=== PATIENT | female | born 1995 | race Caucasian/White ===

== ENCOUNTER → 2017-01-06 | Outpatient (CLI) | payer OTHER ==
[~2017-01-06] MED LIST: HYDR-5688 PO; NORE-41 PO
--- NOTE | 2017-01-06 10:49 | DIAGNOSTIC IMAGING REPORT ---
LEFT FOOT MIN 3 VIEWS CLINICAL HISTORY: 21 years-old Female presenting with LEFT FOOT PAIN. TECHNIQUE: Frontal, oblique, and lateral views of the left foot were obtained. COMPARISON: None. FINDINGS: Nondisplaced intra-articular fracture of the base of the fifth metatarsal which is obliquely oriented and courses towards the articulation of the bases of the fourth and fifth metatarsals and associated articular surface with the cuboid. No other fracture identified. No malalignment. No degenerative change. Mild soft tissue swelling over the lateral foot. IMPRESSION: Nondisplaced intra-articular fracture at the base of the fifth metatarsal (pseudo-Daniels fracture). Electronically signed by: Americo Kemp M.D. 01/06/2017 10:48 AM Dictated Date/Time: 01/06/2017 10:46 AM
== END | disposition home or self-care (01) ==
LOC: C.RDSM 11:34
PROVIDERS: ATTEND Family Medicine
DX: M79.671 Pain in right foot (principal); S92.355A Nondisplaced fracture of fifth metatarsal bone, left foot, initial encounter for closed fracture; X58.XXXA Exposure to other specified factors, initial encounter

== ENCOUNTER → 2017-01-08 | Day surgery (SDC) | payer OTHER ==
[2017-01-07 08:32] VITALS: Ht 170.2 cm; Wt 63.6 kg
--- NOTE | 2017-01-07 14:06 | HISTORY & PHYSICAL EXAMINATION ---
DATE OF ADMISSION: 01/08/2017 CHIEF COMPLAINT: Left foot pain x1 day. 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 She landed on her foot awkwardly. She had immediate pain. She was able to walk off the field on her own but it was very painful. She did have some immediate swelling and pain in the outer aspect of her left foot. She was brought to our office with her market development trainer. She had x-rays of her left foot which revealed an acute fracture through the left fifth metatarsal, representing a Daniels fracture. She was referred to Dr. Hicks for orthopedic evaluation. She denies any prior history of injury or pain in her left foot. She states that she has been having some pain in the right foot for the last 3 weeks, aggravated with athletic activities. Due to her fracture, surgical intervention was recommended. Risks and complications were discussed. All questions were answered. She has agreed to proceed with surgery. She is scheduled for an ORIF of her left fifth metatarsal fracture with Dr. Hicks on 01/08/2017. PAST MEDICAL HISTORY: None. CURRENT MEDICATION: Loestrin Fe daily BCP ALLERGIES: No known drug allergies. PAST SURGICAL HISTORY: She had a previous ORIF of her left distal radius in the past. SOCIAL HISTORY: Denies any tobacco, alcohol or drug use. 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 FAMILY HISTORY: Noncontributory. REVIEW OF SYSTEMS: She denies any headaches, migraines, seizures, syncopal episodes, chest pain, shortness of breath, or heart palpitations. She denies any blurry vision or hearing loss. Denies any bleeding or clotting disorders. No history of DVT, pulmonary embolus, or phlebitis. Denies any fevers, chills, recent weight loss or gain unexpectedly. Denies any nausea, vomiting, diarrhea, constipation or urinary symptoms. She states that she did have little nausea, vomiting after the surgery of her left radius and from pain medication. PHYSICAL EXAMINATION: GENERAL: She is alert and oriented x3. She is in no acute distress. Well-dressed, well-nourished female, normal mood and affect. Height is 5 feet 7 inches. Weight is 140 pounds. HEENT: Head is atraumatic, normocephalic. EYES: Extraocular movements intact. Pupils are equal, round and reactive to light. Sclera is normal. EARS: Hearing is grossly normal. TMs are clear with normal light reflex. NOSE: Nares are patent bilaterally. THROAT: Oropharynx is clear. Mucous membranes moist. Good dentition. Uvula midline. NECK: Supple, no lymphadenopathy, nontender to palpation. CHEST: Nontender to palpation. LUNGS: Clear to auscultation. No accessory muscle use. No adventitious sounds appreciated. HEART: Regular rate and rhythm, normal S1, S2, no murmurs appreciated. ABDOMEN: Soft, nontender, nondistended. Bowel sounds heard in all 4 quadrants. EXTREMITIES: Exam of her left foot reveals some mild swelling. 1+ dorsalis pedis and posterior tibial pulses. Point tenderness to palpation of the base of the left fifth metatarsal. Ankle is nontender with full range of motion of her ankle. She has some discomfort with inversion and eversion due to her left foot fracture. RADIOLOGY IMAGES: Three views of her left foot were taken and show a transverse nondisplaced fracture at the metaphysial-diaphysial junction of her left fifth metatarsal, suggestive of Daniels fracture. X-rays of her right foot were also taken and revealed no evidence of bony abnormality, fracture or dislocation. IMPRESSION: Left fifth metatarsal fracture -- Daniels fracture. PLAN: The patient is scheduled for an ORIF of her left fifth metatarsal fracture with Dr. Hicks on 01/08/2017 at [facility]. Risks and complications were discussed and include but are not limited to infection, pain, bleeding, scarring, nerve and blood vessel damage, wound problems, weakness, stiffness, incomplete relief of symptoms, heart attack, hardware failure, fracture, nonunion, malunion, blood clots, embolisms, stroke and . Informed consent will be obtained by Dr. Hicks at the day of surgery. She does not need any preoperative lab work, EKG or medical clearance prior to surgery. She will follow up 4-5 days postoperatively with her market development trainer for a dressing change. She will also follow up with Dr. Hicks about 10-14 days postoperatively for suture removal. She will continue nonweightbearing. She will bring her crutches and boot to surgery with her tomorrow. She was given a prescription for Philpot for postoperative pain control. She was instructed to be n.p.o. after midnight. She was also instructed on CHG cloth usage. All questions were answered. She knows to call with any further problems, questions, or concerns. SHLOMO
[~2017-01-08] VITALS: Ht 170.2 cm; Wt 63.6 kg
[~2017-01-08] MED LIST changes: +CEFAZOLIN 1000MG/55 ML D5W IV SCH; +CEFAZOLIN SOD 1 GM VIAL ONE; +FENTANYL CITRATE INJ 50 MCG/1 ML 2 ML VIAL ONE; +LACTATED RINGER'S 1000ML 1,000 ML IV SCH; +MIDAZOLAM HCL 1 MG/ML 2ML VIAL ONE; +MoRPHine SULFATE 2 MG/ML CARP IV PRN; +MoRPHine SULFATE 4 MG/ML 1 ML CARP\\VIAL IV PRN; +ONDANSETRON INJ 2 MG/ML 2 ML VIAL ONE; +OXYCODONE/ACETAMINOPHEN 5-325 TAB PO PRN; +PROPOFOL IV EMULSION 10 MG/ML 20 ML VIAL IV ONE; +ROCURONIUM BROMIDE 10 MG/ML 5 ML VIAL IV ONE; +ROPIVACAINE 0.5% 5 MG/ML 30 ML VIAL ONE; +SODIUM CHLORIDE 0.9% 1000ML 1,000 ML IV SCH; +SUCCINYLCHOLINE CHLORIDE 20 MG/ML 10 ML VIAL IV ONE
--- NOTE | 2017-01-08 12:10 | History & Physical Bridge Note ---
H&P Re-Evaluation Bridge Note: I have examined the patient, reviewed the History & Physical and in the interval since the performance of the History & Physical I have noted the following changes of clinical significance: No changes noted
--- NOTE | 2017-01-08 14:21 | Discharge Instructions-SurgCtr ---
Discharge Instructions Date of Service Jan 08, 2017. Visit Reason for Visit: Left Foot 5TH Metatarsal Fx Discharge Discharge Diagnosis / Problem: left foot 5th metatarsal fracture Discharge Goals Goal(s): Decrease discomfort, Improve function, Increase independence Activity Recommendations Activity Limitations: per Instructions/Follow-up section Weightbearing Status: Left non-weightbearing Anesthesia . Post Anesthesia Instructions: If you have had General Anesthesia or IV Sedation: * Do not drive today. * Resume driving when surgeon permits. * Do not make important decisions or sign legal documents today. * Call surgeon for: 1. Temperature elevations greater than 101 degrees F. 2. Uncontrollable pain. 3. Excessive bleeding. 4. Persistent nausea and vomiting. 5. Medication intolerance (nausea, vomiting or rash). * For nausea and vomiting use only clear liquids such as: tea, soda, bouillon until nausea subsides, then gradually increase diet as tolerated. * If you have any concerns or questions, call your surgeon's office. If physician is unavailable and it is an emergency, call 911 or go to the nearest emergency room. . Instructions / Follow-Up Instructions / Follow-Up DIET: * Resume previous diet. MEDICATIONS: * Please take your prescriptions as instructed at your pre-op appointment and/ or see medication discharge instructions listed above. * If concerns develop, call your physician's office at . SPECIAL CARE INSTRUCTIONS: * Ice to left ankle as needed for pain/swelling * Elevate left foot above heart to relieve pain/swelling * Keep dressing clean, dry, intact. Keep splint on at all times. Do not remove until your link trainer teacher says it's okay to go into the boot. * Your surgical extremity may be discolored due to prepping agents used on the skin. A bluish-green tint is a normal variant and should not cause alarm. Call your doctor at [phone] if: * Temperature above 101 degrees * Pain not relieved by pain medicine ordered * There is increased drainage or redness from any incision * You have any unanswered questions, problems or concerns. FOLLOW UP VISIT: * If not already scheduled, please call the office at to schedule a follow-up appointment. Diet Recommendations Home Diet: no limitations, resume previous diet Procedures Procedures Performed: Left Foot Open Reduction Internal Fixation, Fifth Metatarsal Pending Studies Studies pending at discharge: no Medical Emergencies . Who to Call and When: Medical Emergencies: If at any time you feel your situation is an emergency, please call 911 immediately. . Non-Emergent Contact Non-Emergency issues call your: Surgeon Call Non-Emergent contact if: temperature is above 101, your pain is not controlled, your pain is concerning you, wound has increased drainage, wound has increased redness, wound has increased pain . . "Provider Documentation" section prepared by Wendy Solares. . [place] Drug Monitoring Program Search Results: patient reviewed within database, no issues identified
--- NOTE | 2017-01-08 14:22 | [facility] Operative Report ---
Operative Report Operative Date Jan 08, 2017. Pre-Operative Diagnosis Left Foot Fifth Metatarsal Fracture Post-Operative Diagnosis Same Procedure(s) Performed Left Foot Open Reduction Internal Fixation, Fifth Metatarsal Surgeon Dr. 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 She sustained a Chris's fracture of her left foot fifth metatarsal several days ago. She was apprised of her treatment options including nonoperative management. She elected to proceed with operative intervention to speed her recovery back to play. Description of Procedure Informed consent was obtained. The patient identified as Colleen Stafford. She identified the left foot as the operative site. I marked with my initials. Preoperative surgical timeout was performed performed. She was taken the operating room positioned lateral decubitus with the left side up. This was done after demonstration of a peripheral nerve block and a laryngeal mask anesthetic. Bony prominences were inspected and padded the torso secured with a beanbag. An axillary roll was inserted. I confirmed that the we can obtain lateral and AP views of the leg by externally rotating the hip. Tourniquet applied to the left thigh. Preoperative dose of IV antibiotics given. Fluoroscopy guidance was utilized throughout the procedure. DVT prophylaxis will be done with early patient mobility. A routine prep and drape was performed. The tourniquet was not inflated. Starting point was identified using fluoroscopy. A three quarter of an inch incision was made just proximal to the fifth metatarsal base. Blunt dissection was performed down to subcutaneous tissues until the base the fifth metatarsals identified. A guidewire for the 4.0 cannulated screws was inserted and adjusted 2. It was inserted down the shaft of the metatarsal being a perfectly central in both the AP and lateral planes. It had the appropriate starting point high and inside. The skin was protected. I determined the length of approximate 42 mm to be appropriate. A 0.7 mm drill bit was initially utilized followed by insertion of the 4.0 tap. Her was the opportunity to insert a large os screw. I then drilled with the 3.2 mm drill bit and inserted a 4.5 mm cannulated screw. I do not think 55 screw would have fit. An excellent bite was obtained. Reaming was performed just beyond the fracture site the alignment was anatomic. The fracture was well reduced area screw was completely seated. Multiple fluoroscopic images and delivery representative images were obtained. The wound was irrigated with sterile saline and closed with 4-0 nylon for the dermal layer care was taken to avoid any nerve incarceration. The sural nerve was not encountered during the case. I did identify the peroneus brevis tendon. This was intact at the conclusion of the operation. The skin was then closed with 4-0 nylon followed by soft sterile dressing and a well-padded posterior splint with ankle in neutral position. She was then awakened from anesthesia without difficulty taken to recovery room in stable condition. There were no specimens or complications. Counts were correct in the case. Blood loss was minimal. At the conclusion operations both patient's mother informed her my findings in detail postoperative instructions were given. She'll be in in several days for dressing change. We'll keep her nonweightbearing and switch her into a fracture boot. She can do simple things like range of motion. I attest to the content of the Intraoperative Record and any orders documented therein. Any exceptions are noted below.
--- NOTE | 2017-01-08 14:25 | [facility] Operative Report ---
Operative Report Operative Date Jan 08, 2017. Pre-Operative Diagnosis Left Foot Fifth Metatarsal Fracture Post-Operative Diagnosis Same Procedure(s) Performed Left Foot Open Reduction Internal Fixation, Fifth Metatarsal Surgeon Dr. 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 She had immediate left foot pain. She denies any previous foot pain or injury. She was unable to weight- bear without pain. She was brought to were team doctor where x-rays were taken and she was found to have a Daniels fracture of her left fifth metatarsal. She is referred to Dr. Hicks for surgical intervention. Surgical options were discussed and she agreed to proceed with surgery. Risks and complications were discussed. Informed consent was obtained. Description of Procedure Patient was taken to the operating room and placed under general anesthesia. She is given a peripheral nerve block prior to surgery. She was given IV Ancef for surgical prophylaxis timeout was performed. She was prepped and draped in routine sterile fashion. I was present during the entire case, please see Dr. Hicks's operative report for further detail. She was awakened and transferred to the recovery room in stable condition. I attest to the content of the Intraoperative Record and any orders documented therein. Any exceptions are noted below.
[2017-01-08 14:59] VITALS: TEMP 36.5
[2017-01-08 15:38] VITALS: BP 100/61; PULSE 49; O2SAT 100
--- NOTE | 2017-01-08 15:42 | Anesthesiology Progress Note ---
Anesthesia Post Op Note Date & Time Jan 08, 2017 at 15:42 Vital Signs Pain Intensity: 0 Vital Signs Past 12 Hours Date Time Temp Pulse Resp B/P (MAP) Pulse Ox O2 Delivery O2 Flow Rate FiO2 01/08/17 15:38 49 16 100/61 (74) 100 Room Air 01/08/17 14:59 36.5 50 16 98/58 (71) 100 Room Air 01/08/17 14:52 113/58 01/08/17 14:48 42 13 01/08/17 14:48 42 13 99 01/08/17 14:47 36.3 100 Room Air 01/08/17 14:46 103/63 01/08/17 14:43 40 15 01/08/17 14:43 40 15 100 01/08/17 14:42 40 14 01/08/17 14:42 41 14 99 01/08/17 14:41 105/60 01/08/17 14:37 48 15 01/08/17 14:37 47 15 98 01/08/17 14:36 109/64 01/08/17 14:32 50 17 01/08/17 14:32 48 17 01/08/17 14:31 117/62 01/08/17 14:27 49 16 01/08/17 14:27 16 01/08/17 14:26 107/64 01/08/17 14:22 54 17 100 01/08/17 14:22 52 17 01/08/17 14:21 96/60 01/08/17 14:17 44 15 01/08/17 14:17 46 15 100 01/08/17 14:16 105/54 01/08/17 14:13 98/53 01/08/17 14:13 36.6 45 18 98/53 100 Mask 6 01/08/17 12:47 0 01/08/17 12:42 57 01/08/17 12:42 56 9 100 01/08/17 12:41 114/66 01/08/17 12:39 60 16 100 01/08/17 12:39 61 01/08/17 12:36 119/78 01/08/17 12:34 68 01/08/17 12:34 68 18 100 01/08/17 12:31 120/72 01/08/17 12:29 69 01/08/17 12:29 71 12 149/91 100 9/21/17 12:28 68 8 149/91 (110) 99 Mask 6 01/08/17 10:27 36.4 50 16 117/73 (88) 97 Room Air Notes Mental Status: alert / awake / arousable, participated in evaluation Pt Amnestic to Procedure: Yes Nausea / Vomiting: adequately controlled Pain: adequately controlled Airway Patency, RR, SpO2: stable & adequate BP & HR: stable & adequate Hydration State: stable & adequate Anesthetic Complications: no major complications apparent
== END | disposition home or self-care (01) ==
LOC: X.SURG 10:01
PROVIDERS: ATTEND Physical Medicine & Rehabilitation Sports Medicine
DX: S92.352A Displaced fracture of fifth metatarsal bone, left foot, initial encounter for closed fracture (principal); X50.0XXA Overexertion from strenuous movement or load, initial encounter; Y99.8 Other external cause status

== ENCOUNTER → 2017-01-20 | Outpatient (CLI) | payer OTHER ==
[~2017-01-20] MED LIST changes: -CEFAZOLIN 1000MG/55 ML D5W IV SCH; -CEFAZOLIN SOD 1 GM VIAL ONE; -FENTANYL CITRATE INJ 50 MCG/1 ML 2 ML VIAL ONE; -LACTATED RINGER'S 1000ML 1,000 ML IV SCH; -MIDAZOLAM HCL 1 MG/ML 2ML VIAL ONE; -MoRPHine SULFATE 2 MG/ML CARP IV PRN; -MoRPHine SULFATE 4 MG/ML 1 ML CARP\\VIAL IV PRN; -ONDANSETRON INJ 2 MG/ML 2 ML VIAL ONE; -OXYCODONE/ACETAMINOPHEN 5-325 TAB PO PRN; -PROPOFOL IV EMULSION 10 MG/ML 20 ML VIAL IV ONE; -ROCURONIUM BROMIDE 10 MG/ML 5 ML VIAL IV ONE; -ROPIVACAINE 0.5% 5 MG/ML 30 ML VIAL ONE; -SODIUM CHLORIDE 0.9% 1000ML 1,000 ML IV SCH; -SUCCINYLCHOLINE CHLORIDE 20 MG/ML 10 ML VIAL IV ONE
== END | disposition home or self-care (01) ==
LOC: C.RDSM 12:29
PROVIDERS: ATTEND Physical Medicine & Rehabilitation Sports Medicine
DX: S92.355A Nondisplaced fracture of fifth metatarsal bone, left foot, initial encounter for closed fracture (principal); M79.672 Pain in left foot; X58.XXXA Exposure to other specified factors, initial encounter

== ENCOUNTER → 2017-02-16 | Outpatient (CLI) | payer OTHER | END | disposition home or self-care (01) | LOC: C.RDSM 15:32 | PROVIDERS: ATTEND Physical Medicine & Rehabilitation Sports Medicine | DX: S92.355A Nondisplaced fracture of fifth metatarsal bone, left foot, initial encounter for closed fracture (principal); X58.XXXA Exposure to other specified factors, initial encounter ==

== ENCOUNTER → 2017-03-17 | Outpatient (CLI) | payer OTHER | END | disposition home or self-care (01) | LOC: C.RDSM 15:48 | PROVIDERS: ATTEND Physical Medicine & Rehabilitation Sports Medicine | DX: S92.355D Nondisplaced fracture of fifth metatarsal bone, left foot, subsequent encounter for fracture with routine healing (principal); X58.XXXD Exposure to other specified factors, subsequent encounter ==

== ENCOUNTER → 2017-04-27 | Outpatient (CLI) | payer OTHER | END | disposition home or self-care (01) | LOC: C.RDSM 14:48 | PROVIDERS: ATTEND Physical Medicine & Rehabilitation Sports Medicine | DX: S92.355D Nondisplaced fracture of fifth metatarsal bone, left foot, subsequent encounter for fracture with routine healing (principal); X58.XXXD Exposure to other specified factors, subsequent encounter ==

== ENCOUNTER → 2017-06-22 | Outpatient (CLI) | payer OTHER ==
--- NOTE | 2017-06-22 10:30 | DIAGNOSTIC IMAGING REPORT ---
R ANKLE MIN 3 VIEWS HISTORY: 22 years-old Female RIGHT ANKLE PAIN acute right-sided ankle pain COMPARISON: Right foot radiographs 01/06/2017 TECHNIQUE: 3 views of the right ankle FINDINGS: There is no acute fracture, subluxation or significant joint space narrowing. No osteochondral defect. There is mild circumferential soft tissue swelling about the ankle with trace joint effusion. IMPRESSION: 1. Mild soft tissue swelling with trace joint effusion. 2. No acute bony abnormality. The above report was generated using voice recognition software. It may contain grammatical, syntax or spelling errors. Electronically signed by: José Luis Carter M.D. 06/22/2017 10:29 AM Dictated Date/Time: 06/22/2017 10:27 AM
== END | disposition home or self-care (01) ==
LOC: C.RDSM 10:26
PROVIDERS: ATTEND Family Medicine
DX: M25.571 Pain in right ankle and joints of right foot (principal)